=== PATIENT | female | born 1990 ===

== ENCOUNTER 2021-08-11 12:00 | Inpatient (IN) | payer OTHER ==
[~2021-08-11] VITALS: Ht 167.6 cm; Wt 81.6 kg
[2021-08-27] MEDS ORDERED: PRENATA CHEWAB1 EACH (08:07)
[2021-08-29] MEDS ORDERED: OXYC1TAB9 PO (13:15)
== END 2021-08-29 14:12 | disposition home or self-care (01) | DRG 798 ==
LOC: SURH 08-24 12:00 → LDR 08-27 05:54 → OB/GYN 08-28 17:18
PROVIDERS: ADMIT Specialist; ATTEND Specialist
PROC: 10E0XZZ Delivery of Products of Conception, External Approach (ICD-10-PCS; principal; 2021-08-27)
PROC: 4A1HXFZ Monitoring of Products of Conception, Cardiac Rhythm, External Approach (ICD-10-PCS; 2021-08-27)
PROC: 3E033VJ Introduction of Other Hormone into Peripheral Vein, Percutaneous Approach (ICD-10-PCS; 2021-08-27)
PROC: 0UB70ZZ Excision of Bilateral Fallopian Tubes, Open Approach (ICD-10-PCS; 2021-08-28)
DX: O48.0 Post-term pregnancy (principal); Z37.0 Single live birth; Z30.2 Encounter for sterilization; Z3A.40 40 weeks gestation of pregnancy